=== PATIENT | male | born 1975 | race Asian ===

== ENCOUNTER 2016-08-05 16:35 | Outpatient (CLI) | payer BC, OTHER | END 2016-08-05 23:59 | disposition home or self-care (01) | DX: R31.29 Other microscopic hematuria (principal) ==

== ENCOUNTER 2016-08-14 18:53 | Outpatient (CLI) | payer OTHER | END 2016-08-14 18:54 | disposition home or self-care (01) | DX: R31.9 Hematuria, unspecified (principal) ==

== ENCOUNTER 2016-08-17 12:45 | Outpatient (CLI) | payer OTHER | END 2016-08-17 12:46 | disposition home or self-care (01) | DX: I31.9 Disease of pericardium, unspecified (principal) ==

== ENCOUNTER 2017-08-04 10:46 | Outpatient (CLI) | payer BC | END 2017-08-04 10:47 | disposition home or self-care (01) | LOC: SC 10:46 | PROVIDERS: ATTEND Internal Medicine Pulmonary Disease | DX: G47.30 Sleep apnea, unspecified (principal); G47.10 Hypersomnia, unspecified; G47.8 Other sleep disorders; R06.83 Snoring | CPT/HCPCS: 99203; 99212 ==

== ENCOUNTER 2017-09-29 14:13 | Outpatient (CLI) | payer BC | END 2017-09-29 14:14 | disposition home or self-care (01) | LOC: SC 14:13 | PROVIDERS: ATTEND Nurse Practitioner Family | DX: G47.33 Obstructive sleep apnea (adult) (pediatric) (principal) | CPT/HCPCS: 99212; 99214 ==

== ENCOUNTER 2017-12-01 15:45 | Outpatient (CLI) | payer BC | END 2017-12-01 15:46 | disposition home or self-care (01) | LOC: SC 15:45 | PROVIDERS: ATTEND Nurse Practitioner Family | DX: G47.33 Obstructive sleep apnea (adult) (pediatric) (principal) | CPT/HCPCS: 99212; 99214 ==

== ENCOUNTER 2018-01-05 13:27 | Outpatient (CLI) | payer BC | END 2018-01-05 13:28 | disposition home or self-care (01) | LOC: SC 13:27 | PROVIDERS: ATTEND Nurse Practitioner Family | DX: G47.33 Obstructive sleep apnea (adult) (pediatric) (principal) | CPT/HCPCS: 99212; 99214 ==

== ENCOUNTER 2018-02-18 13:31 | Outpatient (CLI) | payer BC | END 2018-02-18 13:32 | disposition home or self-care (01) | LOC: SC 13:31 | PROVIDERS: ATTEND Nurse Practitioner Family | DX: G47.33 Obstructive sleep apnea (adult) (pediatric) (principal) | CPT/HCPCS: 99212; 99214 ==

== ENCOUNTER 2018-03-25 13:37 | Outpatient (CLI) | payer BC | END 2018-03-25 13:38 | disposition home or self-care (01) | LOC: SC 13:37 | PROVIDERS: ATTEND Nurse Practitioner Family | DX: G47.33 Obstructive sleep apnea (adult) (pediatric) (principal) | CPT/HCPCS: 99212; 99214 ==

== ENCOUNTER 2018-05-11 15:39 | Outpatient (CLI) | payer BC | END 2018-05-11 15:40 | disposition home or self-care (01) | LOC: SC 15:39 | PROVIDERS: ATTEND Nurse Practitioner Family | DX: G47.33 Obstructive sleep apnea (adult) (pediatric) (principal) | CPT/HCPCS: 99212; 99214 ==

== ENCOUNTER 2018-06-15 15:09 | Outpatient (CLI) | payer BC | END 2018-06-15 15:10 | disposition home or self-care (01) | LOC: SC 15:09 | PROVIDERS: ATTEND Nurse Practitioner Family | DX: G47.33 Obstructive sleep apnea (adult) (pediatric) (principal) | CPT/HCPCS: 99212; 99213 ==

== ENCOUNTER 2020-04-30 16:51 | Outpatient (CLI) | payer BC, OTHER ==
[2020-04-30 18:39] LABS: BASOPHILS # (AUTO) 0.2 10^3/uL (0.0-0.1); BASOPHILS % (AUTO) 1.9 %; EOSINOPHILS # (AUTO) 0.4 10^3/uL (0.0-0.7); EOSINOPHILS % (AUTO) 4.6 %; LYMPHOCYTES # (AUTO) 2.3 10^3/uL (1.5-3.5); LYMPHOCYTES % (AUTO) 28.1 %; MEAN CORPUSCULAR HEMOGLOBIN 30.8 pg (27.0-31.0); MEAN CORPUSCULAR HGB CONC 36.2 g/dL (32.0-36.0); MEAN PLATELET VOLUME 11.7 fL (7.4-11.4); MONOCYTES # (AUTO) 0.6 10^3/uL (0.0-1.0); MONOCYTES % (AUTO) 7.2 %; NEUTROPHILS # (AUTO) 4.7 10^3/uL (1.5-6.6); NEUTROPHILS % (AUTO) 57.7 %; PLT - PLATELET COUNT 185 10^3/uL (130-450); RED BLOOD COUNT 5.52 10^6/uL (4.70-6.10); RED CELL DISTRIBUTION WIDTH 11.7 % (12.0-15.0); WHITE BLOOD COUNT 8.1 x10^3/uL (4.8-10.8)
[2020-04-30 18:52] LABS: BILIRUBIN,URINE NEGATIVE (NEGATIVE); GLUCOSE, URINE (UA) >=1000 mg/dL (NEGATIVE); KETONES,URINE (UA) NEGATIVE (NEGATIVE); LEUKOCYTE ESTERASE, URINE NEGATIVE (NEGATIVE); NITRITE,URINE NEGATIVE (NEGATIVE); OCCULT BLOOD,URINE MODERATE (NEGATIVE); PH,URINE 5.5 PH (5.0-7.5); PROTEIN,URINE 100 mg/dL (NEGATIVE); UROBILINOGEN,URINE 0.2 (NORMAL) E.U./dL (NORMAL)
[2020-04-30 19:12] LABS: ALBUMIN 4.5 g/dL (3.2-5.5); ALBUMIN/GLOBULIN RATIO 1.6 (1.0-2.2); ALKALINE PHOSPHATASE 105 IU/L (42-121); ALT ALANINE AMINOTRANSFERASE 17 IU/L (10-60); AST ASPARTATE AMINOTRANSFERASE 24 IU/L (10-42); BUN - BLOOD UREA NITROGEN 14 mg/dL (6-20); CALCIUM 9.5 mg/dL (8.5-10.3); CARBON DIOXIDE - CO2 23 mmol/L (21-32); CHLORIDE 98 mmol/L (101-111); CHOLESTEROL 401 mg/dL; GLUCOSE 288 mg/dL (70-100); HDL CHOLESTEROL 25 mg/dL; TOTAL PROTEIN 7.4 g/dL (6.7-8.2)
[2020-04-30 19:14] LABS: FOLATE 6.61 ng/mL (5.90 - >24.8)
[2020-04-30 19:21] LABS: BACTERIA,URINE None Seen /HPF (None Seen); CLARITY,URINE CLEAR (CLEAR); RBC,URINE 0-5 /HPF (0-5); SQUAMOUS EPITHELIAL CELL,UR NONE SEEN (<= Few)
[2020-04-30 20:12] LABS: HEMOGLOBIN A1c% 10.2 % (4.27-6.07)
== END 2020-04-30 23:59 | disposition home or self-care (01) ==
LOC: LAB.WCP 16:51
PROVIDERS: ATTEND Family Medicine
DX: R63.1 Polydipsia (principal); E78.1 Pure hyperglyceridemia; R35.8 Other polyuria; K14.9 Disease of tongue, unspecified
CPT/HCPCS: 36415; 80053; 80061; 81001; 82607; 82746; 83036; 83721; 85025; 87086

== ENCOUNTER 2020-06-05 12:52 | Outpatient (CLI) | payer OTHER ==
[2020-06-05 13:14] LABS: BASOPHILS # (AUTO) 0.1 10^3/uL (0.0-0.1); BASOPHILS % (AUTO) 0.6 %; EOSINOPHILS # (AUTO) 0.2 10^3/uL (0.0-0.7); EOSINOPHILS % (AUTO) 1.5 %; HCT - HEMATOCRIT 44.7 % (42.0-52.0); HGB - HEMOGLOBIN 15.3 g/dL (14.0-18.0); LYMPHOCYTES # (AUTO) 1.6 10^3/uL (1.5-3.5); LYMPHOCYTES % (AUTO) 9.7 %; MEAN CORPUSCULAR HEMOGLOBIN 30.9 pg (27.0-31.0); MEAN CORPUSCULAR HGB CONC 34.2 g/dL (32.0-36.0); MEAN CORPUSCULAR VOLUME 90.3 fL (80.0-94.0); MEAN PLATELET VOLUME 9.9 fL (7.4-11.4); MONOCYTES # (AUTO) 1.5 10^3/uL (0.0-1.0); MONOCYTES % (AUTO) 9.2 %; NEUTROPHILS # (AUTO) 12.9 10^3/uL (1.5-6.6); NEUTROPHILS % (AUTO) 78.8 %; PLT - PLATELET COUNT 185 10^3/uL (130-450); RED BLOOD COUNT 4.95 10^6/uL (4.70-6.10); RED CELL DISTRIBUTION WIDTH 12.5 % (12.0-15.0); WHITE BLOOD COUNT 16.4 x10^3/uL (4.8-10.8)
[2020-06-05 13:18] LABS: SLIDE REVIEW? Indicated
[2020-06-05 13:28] LABS: PLATELET ESTIMATE, MANUAL NORMAL (130-450,000) (NORMAL); PLATELET MORPHOLOGY NORMAL APPEARANCE (NORMAL); RBC MORPHOLOGY (MULTIPLE) NORMAL APPEARANCE (NORMAL); WBC MORPHOLOGY (MULTIPLE) NORMAL APPEARANCE (NORMAL)
[2020-06-05 13:30] LABS: ALBUMIN 4.5 g/dL (3.2-5.5); ALBUMIN/GLOBULIN RATIO 1.5 (1.0-2.2); BILIRUBIN,TOTAL 1.5 mg/dL (0.2-1.0); CALCIUM 9.3 mg/dL (8.5-10.3); POTASSIUM 3.6 mmol/L (3.5-5.0); TOTAL PROTEIN 7.6 g/dL (6.7-8.2)
[2020-06-05] MEDS ORDERED: IOPAMIDOL-300 50 ML VIAL PO ONE (14:52)
[2020-06-05] MEDS ORDERED: IOVERSOL 320 100 ML VIAL IVP ONE (14:52)
--- NOTE | 2020-06-05 15:41 | CT Report ---
PROCEDURE: Abdomen/Pelvis W INDICATIONS: LT LOWER QUAD ABD PAIN CONTRAST: IV CONTRAST: Optiray 320 ml: 100 PO CONTRAST: Isovue 300 ml50 TECHNIQUE: After the administration of oral and intravenous contrast, 5 mm thick sections acquired from the diap hragms to the symphysis. 5 mm thick coronal and sagittal reformats were acquired. For radiation dos e reduction, the following was used: automated exposure control, adjustment of mA and/or kV accordin g to patient size. COMPARISON: None. FINDINGS: Image quality: Excellent. ABDOMEN: Lung bases: Lung bases are clear. Heart size is normal. Solid organs: Liver and spleen are normal in size and enhancement. Gallbladder appears normal. Ramo iary system is non dilated. Pancreas enhances normally. No adrenal nodules. Kidneys demonstrate no rmal size and enhancement, without hydronephrosis. Peritoneum and bowel: There are multiple diverticula in the sigmoid colon with bowel wall thickening and inflammatory fat stranding surrounding a single diverticulum that is compatible with diverticulit is. No focal fluid collection or pneumoperitoneum is seen. The appendix appears normal. No signs of b owel obstruction. Bowel loops demonstrate normal wall thickness and caliber. No free fluid or air. Nodes and vessels: No retroperitoneal or mesenteric adenopathy by size criteria. Aorta and inferior vena cava are normal in size. Miscellaneous: No ventral hernias. PELVIS: Genitourinary: Bladder wall thickness is normal. Miscellaneous: No inguinal hernias or adenopathy. Bones: No suspicious bony lesions. No vertebral body compression fractures. IMPRESSION: Acute uncomplicated sigmoid diverticulitis. Reviewed by: Chong Henry MD on 06/05/2020 3:40 PM PST Approved by: Chong Henry MD on 06/05/2020 3:40 PM PST Station ID: [id number]
== END 2020-06-05 12:53 | disposition home or self-care (01) ==
LOC: LAB 12:52
PROVIDERS: ATTEND Nurse Practitioner Family
DX: K57.32 Diverticulitis of large intestine without perforation or abscess without bleeding (principal); R10.32 Left lower quadrant pain
CPT/HCPCS: 36415; 74177; 80053; 85025; Q9967

== ENCOUNTER 2020-06-12 08:00 | Outpatient (CLI) | payer OTHER ==
[2020-06-12 18:16] LABS: BASOPHILS % (AUTO) 1.5 %; EOSINOPHILS % (AUTO) 4.9 %; HCT - HEMATOCRIT 41.9 % (42.0-52.0); HGB - HEMOGLOBIN 14.4 g/dL (14.0-18.0); LYMPHOCYTES % (AUTO) 35.3 %; MEAN CORPUSCULAR HGB CONC 34.4 g/dL (32.0-36.0); MEAN CORPUSCULAR VOLUME 90.3 fL (80.0-94.0); MEAN PLATELET VOLUME 10.2 fL (7.4-11.4); MONOCYTES % (AUTO) 7.5 %; NEUTROPHILS % (AUTO) 50.6 %; PLT - PLATELET COUNT 245 10^3/uL (130-450); RED BLOOD COUNT 4.64 10^6/uL (4.70-6.10); RED CELL DISTRIBUTION WIDTH 12.1 % (12.0-15.0); WHITE BLOOD COUNT 8.1 x10^3/uL (4.8-10.8)
[2020-06-12 18:39] LABS: ABNORMAL LYMPHS % (MANUAL) 0 %; BAND NEUTROPHILS % (MANUAL) 0 %
[2020-06-12 20:54] LABS: DIFFERENTIAL COMMENT MANUAL DIFFERENTIAL; EOSINOPHILS # (MANUAL) 0.6 10^3/uL (0-0.7); LYMPHOCYTES # (MANUAL) 3.1 10^3/uL (1.5-3.5); LYMPHOCYTES % (MANUAL) 38 %; METAMYELOCYTES % (MANUAL) 1 %; MONOCYTES # (MANUAL) 0.3 10^3/uL (0.0-1.0); MYELOCYTES % (MANUAL) 1 %; NEUTROPHILS # (MANUAL) 3.9 10^3/uL (1.5-6.6); NUCLEATED RBC (MANUAL) 1 %; PLATELET ESTIMATE, MANUAL NORMAL (130-450,000) (NORMAL); RBC MORPHOLOGY (MULTIPLE) NORMAL APPEARANCE (NORMAL)
== END 2020-06-12 23:59 | disposition home or self-care (01) ==
LOC: LAB.WCP 08:00
PROVIDERS: ATTEND Family Medicine
DX: R19.5 Other fecal abnormalities (principal)
CPT/HCPCS: 36415; 85025

== ENCOUNTER 2020-08-10 08:37 | Day surgery (SDC) | payer OTHER ==
[2020-08-10] MEDS ORDERED: LACTATED RINGERS 1,000 ML IV ONE (08:42)
[2020-08-10] MEDS ORDERED: MIDAZOLAM 2 MG/2 ML VIAL ONE ×3 (11:22→11:52)
[2020-08-10] MEDS ORDERED: fentaNYL 250 MCG/5 ML VIAL ONE (11:22)
--- NOTE | 2020-08-10 11:40 | HISTORY & PHYSICAL EXAMINATION ---
Chief Complaint - Chief Complaint Chief Complaint: abdominal pain several weeks ago History of Present Illness - History Obtained From Records Reviewed: yes History obtained from: pt Exam Limitations: none - History of Present Illness HPI Comment/Other: Abdominal pain several weeks ago. He had elevated WBC and ct scan showed left colitis. He is well now History - Past Medical History Cardiovascular: reports: None Respiratory: reports: None Endocrine/Autoimmune: reports: Type 2 diabetes GI: reports: Diverticulitis : reports: None HEENT: reports: None Psych: reports: None Musculoskeletal: reports: None Derm: reports: None MRSA Hx?: No - Past Surgical History Ortho: reports: Knee replacement, Shoulder arthroplasty Meds/Allgy - Home Medications Home Medications: Ambulatory Orders Medication Instructions Recorded Confirmed metFORMIN [Glucophage] 500 mg PO BIDWM 08/09/20 08/10/20 Fluoxetine HCl [Prozac] 20 mg PO DAILY 08/10/20 08/10/20 - Allergies Allergies/Adverse Reactions: Allergies Allergy/AdvReac Type Severity Reaction Status Date / Time No Known Drug Allergies Allergy Verified 02/09/14 15:17 Review of Systems - Other Findings Other Findings: 10 pt ros as above otherwise unremarkable Exam - Vital Signs Reviewed Vital Signs: Yes Vital Signs: Vital Signs x48h Temp Pulse Resp BP Pulse Ox 08/10/20 08:44 36 C L 80 12 129/89 H 100 - Physical Exam General Appearance: positive: No acute distress, Alert Eyes Bilateral: positive: Normal inspection, PERRL, EOMI ENT: positive: No signs of dehydration Neck: positive: No JVD Respiratory: positive: Breath sounds nml Cardiovascular: positive: Regular rate & rhythm Abdomen: positive: Non-tender, No distention Neurologic/Psychiatric: positive: Oriented x3 Conclusion/Plan - Problem List (1) Colitis Conclusion/Plan: Plan colonoscopy. parq held and consent obtained
[2020-08-10] MEDS ORDERED: ONDANSETRON 4 MG/2 ML VIAL ONE (11:50)
[2020-08-10 12:36] VITALS: BP 116/84
== END 2020-08-10 08:38 | disposition home or self-care (01) ==
LOC: SDS 08:37
PROVIDERS: ATTEND Surgery
PROC: 0DBE8ZX Excision of Large Intestine, Via Natural or Artificial Opening Endoscopic, Diagnostic (ICD-10-PCS; 2020-08-10)
PROC: 0DBP8ZX Excision of Rectum, Via Natural or Artificial Opening Endoscopic, Diagnostic (ICD-10-PCS; principal; 2020-08-10 10:00)
DX: Z09 Encounter for follow-up examination after completed treatment for conditions other than malignant neoplasm (principal); Z87.19 Personal history of other diseases of the digestive system; K63.5 Polyp of colon; E11.9 Type 2 diabetes mellitus without complications; Z79.84 Long term (current) use of oral hypoglycemic drugs; Z79.899 Other long term (current) drug therapy
CPT/HCPCS: 45380; J3010; J7120

== ENCOUNTER 2020-08-23 16:08 | Outpatient (CLI) | payer OTHER | END 2020-08-23 16:09 | disposition home or self-care (01) | LOC: LAB.N 16:08 | PROVIDERS: ATTEND Family Medicine | DX: E11.8 Type 2 diabetes mellitus with unspecified complications (principal) ==

== ENCOUNTER 2020-08-24 07:02 | Outpatient (CLI) | payer OTHER ==
[2020-08-24 11:44] LABS: CALCIUM 9.2 mg/dL (8.5-10.3); CREATININE 0.9 mg/dL (0.6-1.2)
[2020-08-24 11:50] LABS: CREATININE,URINE 159.4 mg/dL; MICROALBUM/CREATININE RATIO,UR 109.8 ug/mg (<30.0); MICROALBUMIN,URINE 17.5 mg/dL (0-300.0)
[2020-08-24 12:06] LABS: ESTIMATED AVERAGE GLUCOSE 140 mg/dL (70-100); HEMOGLOBIN A1c% 6.5 % (4.27-6.07)
== END 2020-08-24 07:03 | disposition home or self-care (01) ==
LOC: LAB.N 07:02
PROVIDERS: ATTEND Family Medicine
DX: E11.8 Type 2 diabetes mellitus with unspecified complications (principal)
CPT/HCPCS: 36415; 80048; 81599; 82043; 82570; 83036; 84681; 86341

== ENCOUNTER 2021-03-21 13:34 | Outpatient (CLI) | payer OTHER | END 2021-03-21 13:35 | disposition home or self-care (01) | LOC: DI.N 13:34 | PROVIDERS: ATTEND Family Medicine | DX: Z53.9 Procedure and treatment not carried out, unspecified reason (principal) ==

== ENCOUNTER 2021-04-18 08:00 | Outpatient (CLI) | payer OTHER ==
[2021-04-18 12:20] LABS: ALBUMIN 4.5 g/dL (3.2-5.5); ALBUMIN/GLOBULIN RATIO 1.6 (1.0-2.2); BILIRUBIN,TOTAL 0.7 mg/dL (0.2-1.0); CALCIUM 9.5 mg/dL (8.5-10.3); TOTAL PROTEIN 7.4 g/dL (6.7-8.2)
[2021-04-18 14:34] LABS: ESTIMATED AVERAGE GLUCOSE 160 mg/dL (70-100); HEMOGLOBIN A1c% 7.2 % (4.27-6.07)
== END 2021-04-18 23:59 | disposition home or self-care (01) ==
LOC: LAB.WCP 08:00
PROVIDERS: ATTEND Family Medicine
DX: E11.8 Type 2 diabetes mellitus with unspecified complications (principal)
CPT/HCPCS: 36415; 80053; 83036

== ENCOUNTER 2021-04-18 08:33 | Outpatient (CLI) | payer OTHER ==
--- NOTE | 2021-04-18 12:51 | XRAY Report ---
PROCEDURE: Ankle 3 View LT INDICATIONS: LEFT ANKLE PAIN TECHNIQUE: 3 views of the ankle were acquired. COMPARISON: None FINDINGS: Bones: No fractures or dislocations. Ankle mortise is normally aligned. No suspicious bony lesions . Soft tissues: No tibiotalar joint effusion. Achilles tendon appears normal. IMPRESSION: No visualized acute fracture or dislocation. However, occult injury cannot be excluded. Recommend short interval imaging follow-up in 7-10 days as clinically indicated for additional evalua tion. Reviewed by: Karina Zapata MD on 04/18/2021 12:50 PM [facility] Approved by: Karina Zapata MD on 04/18/2021 12:50 PM [facility] Station ID: [id number]
== END 2021-04-18 08:34 | disposition home or self-care (01) ==
LOC: DI.N 08:33
PROVIDERS: ATTEND Family Medicine
DX: M25.572 Pain in left ankle and joints of left foot (principal); E11.8 Type 2 diabetes mellitus with unspecified complications
CPT/HCPCS: 36415; 80053; 83036

== ENCOUNTER 2021-07-11 15:33 | Outpatient (CLI) | payer OTHER ==
--- NOTE | 2021-07-11 16:32 | SLEEP CARE CONSULTATION ---
Information from patient questionnaire entered by Rosemary Freitas MA. I have reviewed and concur with the information entered by Rosemary Freitas MA. This document represents the service I personally performed and the decisions made by , Eveline Chicas ARNP. History of Present Illness Service Date and Time: 07/11/2021 1533 Reason for Visit: New patient (LAST SEEN 06/2018, HAS NOT USED CPAP FOR MONTHS, ), Previously diagnosed sleep apnea Chief Complaint: reports: Unrefreshed sleep, Snoring, Observed pauses in breathing, Fatigue Date of Onset: 14 years Usual bedtime: 9:30-10:00 Time it takes to fall asleep: within 5 minutes Snores at night: Yes Observed to quit breathing while asleep: Yes Sleeps alone due to snoring: Yes Number of times waking at night: 2 Reasons for waking at night: reports: Snoring, Other (unknown reasons) Toss, Turn, or Twitch while sleeping: Yes Recalls having dreams: Yes Usually gets out of bed at: 0500 WEEK 0700 WEEKENDS Feels refreshed in the morning: No (not all the time) Morning headache: No Sleepy or fatigued during the day: Yes Ever fallen asleep while driving: No Takes day naps: Yes (2 times a week; lasts about 1.5 - 2 hours) Dreams during day naps: No Prior sleep studies: Yes Additional HPI information: SAMIA JASON was previously diagnosed to have severe, AHI 44.9, obstructive sleep apnea-hypopnea syndrome and comes in today to re-establish care for CPAP therapy. He has not been using his CPAP since 2019 due to mask issues. - Parasomnia Symptoms Ever been unable to move upon waking from sleep: No Walks in sleep: No Talks in sleep: Yes Ever acted out dreams in sleep: Yes Ever felt weak in the knees when startled or emotional: No Bothered by creepy, crawly, restless sensations in legs: No Problems with memory or concentration: No CPAP Compliance Data Compliance data discussion: Patient has a Dreamstation that may be on the recall. He has not been using his CPAP because of mask issues. He had been using nasal pillows mask that was uncomfortable and in the middle of the night he would find it under his chin. He has not consistently used it since 2019. Subjective Initial [place] Sleepiness Scale score: 6 (06/2021) Past Medical History Past Medical History: reports: Diabetes, Anxiety Social History The patient's occupation is a [employer]OL RO[employer]. Patient is and lives in [place]. Have you smoked in the past 12 months: Yes Cigarettes per day (20/pack): 20 Years of smokin Smoking Pack Years: 20.0 Alcohol use: Yes Alcohol amount and frequency: social, not often Caffeine use: Yes Caffeine amount and frequency: 3 X DAILY Family History Family history of sleep disordered breathing: Yes Family Hx Sleep Apnea: Father: Snoring, Sleep apnea - Untreated, Sibling: Snoring, Sleep apnea - Untreated Allergies and Home Medications Drug allergies reviewed: Yes (NKDA) Home medication list reviewed: Yes Allergy and home medication list: Allergies No Known Drug Allergies Allergy (Verified 02/09/14 15:17) Medications: Metformin 500 mg BID Fluoxetine 20 mg daily Review of Systems Cardiovascular: denies: high blood pressure Gastrointestinal: denies: heartburn Neurological: denies: headaches Psychiatric: reports: anxiety. denies: depression Ear/Nose/Throat: denies: tonsillectomy, wisdom teeth removed Endocrine: denies: thyroid disease Immunologic: denies: allergies to food or environment Physical Exam Vital signs obtained and entered by: Haris FREITAS CMA [facility] Blood Pressure: 128/78 (RESP 16, PULSE 92, LEFT, ) Heart Rate: 90 O2 Saturation: 96 (N95) Height: 6 ft Weight: 180 lb (CLOTHES) Body Mass Index: 24.4 BMI Classification: Healthy weight Neck circumference: 14.5 (INCHES) Heart: regular rate and rhythm Lungs: clear bilaterally Impression and Plan 1. Severe Obstructive Sleep Apnea-Hypopnea Syndrome, as previously diagnosed and as still suggested by a history of loud and irregular snoring, observed cessation of breath while asleep, gasping or choking in sleep, unrefreshed sleep , and excessive daytime sleepiness. I recommend proceeding to polysomnography to confirm the diagnosis and to assess severity. If the patient has significant sleep disordered breathing, a manual CPAP titration study will also be performed to find the optimal treatment pressure. I informed the patient of what the sleep studies involve and after some discussion, obtained agreement to proceed. The pa thophysiology of obstructive sleep apnea-hypopnea syndrome was discussed with the patient and health risks of cardiovascular and cerebrovascular disease if not treated. Risks of drowsy driving discussed in detail and patient advised to avoid long distance driving and to gum puller at the first sign of drowsiness. Patient agreed to plan. * Schedule polysomnography +- manual CPAP titration study and return in 1-2 weeks after the study to discuss results. * Avoid long distance driving or driving when feeling sleepy. * Avoid alcohol, sedative and muscle relaxant around bedtime. * Maintain a healthy weight. * Review instructions provided by trained office staff on how to prepare for the sleep study. * Return for follow-up after sleep study completed. Counseling Topics: Weight control Visit Type: In Office Time Spent with Patient (minutes): 30 Provider Statement: I spent 100% of the Face to Face Visit with the patient with greater than 50% spent counseling the patient and coordination of care.
[2021-07-11 16:33] VITALS: BP 128/78
== END 2021-07-11 15:34 | disposition home or self-care (01) ==
LOC: SC 15:33
PROVIDERS: ATTEND Nurse Practitioner Family
DX: G47.33 Obstructive sleep apnea (adult) (pediatric) (principal); E11.9 Type 2 diabetes mellitus without complications; F17.210 Nicotine dependence, cigarettes, uncomplicated; Z79.84 Long term (current) use of oral hypoglycemic drugs
CPT/HCPCS: 99203; 99212

== ENCOUNTER 2021-07-26 14:17 | Outpatient (CLI) | payer OTHER | END 2021-07-26 14:18 | disposition home or self-care (01) | LOC: SC 14:17 | PROVIDERS: ATTEND Nurse Practitioner Family | DX: G47.33 Obstructive sleep apnea (adult) (pediatric) (principal); R09.02 Hypoxemia; R00.0 Tachycardia, unspecified | CPT/HCPCS: 95806 ==

== ENCOUNTER 2021-08-15 15:25 | Outpatient (CLI) | payer OTHER ==
[2021-08-15 16:04] VITALS: BP 130/79
--- NOTE | 2021-08-15 16:04 | SLEEP CARE CONSULTATION ---
Information from patient questionnaire entered by Rosemary Freitas MA. I have reviewed and concur with the information entered by Rosemary Freitas MA. This document represents the service I personally performed and the decisions made by , Eveline Chicas ARNP. History of Present Illness Service Date and Time: 08/15/2021 1525 Initial [place] Sleepiness Scale score: 6 (06/2021) Current [place] Sleepiness Scale score: 9 (08/2021) Additional HPI information: SAMIA JASON returns for follow up and results of the recently performed home sleep study. I explained the pathophysiology behind obstructive sleep apnea. We then spent quite a bit of time discussing different treatment options. For mild obstructive sleep apnea, surgery and oral appliance are alternatives to nasal CPAP therapy but in moderate or severe cases, nasal CPAP is the most effective and reliable treatment. I reviewed the impact of weight changes on sleep apnea and strongly recommended losing weight. After some discussion, the patient opted to go with the nasal CPAP therapy. Nasal autoCPAP set at 4-15 cmH20 will be ordered with rationale explained. A manual titration study will be ordered if unable to find optimal pressure with office adjustments. I explained how CPAP machine works and what to expect when using the machine. Using CPAP every night in order to get used to it was emphasized. Patient advised to put CPAP mask on before getting into bed so as not to fall asleep without CPAP. To assist acclimation to CPAP use, it could also be used for a short time during day while reading or watching TV. The patient was instructed to call the CPAP supplier to discuss any mechanical problem that may occur. If the mask given is uncomfortable or is difficult to keep on through the night even with adjustment, contact the CPAP supplier as many will replace with another mask style if notified before 30 days. If snoring or perceives is not getting enough air or too much air from the machine, notify this office. Patient counseled not drink alcohol less than 4 hours before bedtime as it can increase snoring and apnea. Patient was cautioned about risks of drowsy driving until sleepiness symptoms resolve. Sleep Study - Results Type of Sleep Study: Home sleep study (F/U HOME STUDY, 07/26/21 [facility],) Prior sleep studies: Yes Polysomnography/Home Sleep Study results: Physician Impression: The quality of the study is good. The length of the study is adequate (> 240 minutes). Please also see the tabulated and graphic data. 1. Obstructive Sleep Apnea-Hypopnea (ICD-10 G47.33), severe, with an AHI of 59.6/hr and so SaO2 of 81%. During the study, the patient had 455 apneas (455 obstructive, 0 central, 0 mixed) and 33 hypopneas. The longest episode lasted 103.5 seconds. The respiratory events occurred only during supine sleep (supine AHI was 67.5 and non-supine, 0.00). 2. Hypoxemia (ICD-10 R09.02), mild, with the lowest oxygen saturation of 81 % and 29.8 minutes with SaO2 under 90%. Baseline oxygen saturation was normal (Average oxygen saturation was 94%). 3. Tachycardia, with maximum recorded heart rate of 129 beats per minute. Allergies and Home Medications Home medication list reviewed: Yes (no changes) Allergy and home medication list: Allergies No Known Drug Allergies Allergy (Verified 02/09/14 15:17) Review of Systems Review of systems same as previous: Yes (no changes) Physical Exam Vital signs obtained and entered by: Haris FREITAS CMA AAOH, Blood Pressure: 130/79 (RIGHT, PULSE 79, RESP 16) Heart Rate: 75 O2 Saturation: 98 (N94) Height: 6 ft Weight: 184 lb (WITH CLOTHES BOOTS) Body Mass Index: 24.9 BMI Classification: Healthy weight Impression and Plan 1. Obstructive Sleep Apnea-Hypopnea Syndrome, severe, with lowest oxygen saturation of 81%. Obviously this is the cause of the patients symptoms of unrefreshed sleep, and excessive daytime sleepiness. Positive pressure therapy could benefit diabetes and anxiety. As mentioned above, the patient will be started on nasal autoCPAP therapy with pressure set at 4-15 cmH2O. A manual titration study will be completed if unable to find optimal treatment pressure with office adjustments. Compliance guidelines also reviewed. A copy of compliance guidelines will be given for reference at check out. 2. Hypoxemia, mild, with the lowest oxygen saturation of 81 % and 29.8 minutes with SaO2 under 90%. His baseline oxygen saturation was normal with an average oxygen saturation of 94%. 3. Tachycardia, with maximum recorded heart rate of 129 beats per minute during the night of the study. Elevated heart rate could be secondary to obstructive sleep apnea but may also be due to cardiovascular disease. He was advised to follow up with his primary doctor for further evaluation and workup as needed. * Nasal auto CPAP therapy, pressure at 4-15 cm H2O. * Attempt to lose weight. * Avoid alcohol consumption near bedtime. * Avoid supine sleep until using CPAP. * The patient is again cautioned about driving until sleepiness completely resolves. * Return one month after CPAP obtained. I will assess response to therapy and compliance at that time. Counseling Topics: Weight control Visit Type: In Office Time Spent with Patient (minutes): 20 Provider Statement: I spent 100% of the Face to Face Visit with the patient with greater than 50% spent counseling the patient and coordination of care.
== END 2021-08-15 15:26 | disposition home or self-care (01) ==
LOC: SC 15:25
PROVIDERS: ATTEND Nurse Practitioner Family
DX: G47.33 Obstructive sleep apnea (adult) (pediatric) (principal)
CPT/HCPCS: 99212; 99213

== ENCOUNTER 2021-10-17 15:21 | Outpatient (CLI) | payer OTHER ==
--- NOTE | 2021-10-17 16:04 | SLEEP CARE CONSULTATION ---
Information from patient questionnaire entered by Rosemary Freitas MA. I have reviewed and concur with the information entered by Rosemary Freitas MA. This document represents the service I personally performed and the decisions made by , Eveline Chicas ARNP. History of Present Illness Service Date and Time: 10/17/2021 1521 Previous diagnosis: Severe, Obstructive Sleep Apnea-Hypopnea Syndrome AHI: 59.6 Reason for follow up: first compliance (CHANDANA DE LEON 09/11/2021, ) Equipment type: CPAP Equipment obtained from: [facility] (got initial supplies) Mask style: Nasal (over the nose) Mask brand: Resmed Backup mask available: No (will keep old mask when replaced) Last cushion change: 1 month Prior sleep studies: Yes Type of Sleep Study: Home sleep study (F/U HOME STUDY, 07/26/21 [facility],) HPI additional information: SAMIA JASON was diagnosed to have severe, AHI 59.6, obstructive sleep apnea- hypopnea syndrome and returned today for CPAP therapy first compliance follow- up. Sleep Study - Results Type of Sleep Study: Home sleep study (F/U HOME STUDY, 07/26/21 [facility],) Prior sleep studies: Yes CPAP Compliance Data - Data Reviewed with Patient Average duration of nightly device use: 6 HOURS 44 MINUTES Compliance rate %: 100 (09/16/2021-10/15/2021; 30/30 days used) Current pressure setting (cmH2O): 5-20 Average residual AHI: 1.9 Central apnea: .4 Obstructive apnea: 1.2 Hypopnea: .1 Average large leak: .0 Subjective Patient concerns: reports: other (occasional slight headache). denies: aerophagia, mask discomfort, air blowing in eyes, mask leak noise, condensation in mask/hose, nasal congestion, dry mouth, nose, throat, epistaxis Observed to snore while using device: No Current pressure setting perceived as: comfortable On therapy, patient: reports: sleeping better, awakening more refreshed, being more awake and alert during the day, more rested overall. denies: drowsiness while driving Initial [place] Sleepiness Scale score: 6 (06/2021) Current [place] Sleepiness Scale score: 4 () Allergies and Home Medications Known drug allergies: No Home medication list reviewed: Yes (no changes) Allergy and home medication list: Allergies No Known Drug Allergies Allergy (Verified 02/09/14 15:17) Review of Systems Review of systems same as previous: Yes (no changes) Physical Exam Vital signs obtained and entered by: AMANDA GARCIA Blood Pressure: 120/82 (RESP 18, PULSE 80, RIGHT) Cuff size: wrist Heart Rate: 82 O2 Saturation: 98 (PAPER MASK) Height: 6 ft Weight: 185 lb (CLOTHES) Weight change since last visit: MAINTAINING WEIGHT Body Mass Index: 25.0 BMI Classification: Overweight Impression and Plan 1. Obstructive Sleep Apnea-Hypopnea Syndrome, severe, with excellent treatment compliance and good apnea control. On CPAP therapy, the patient has better sleep quality and is more rested overall. Patient is very happy with current experience using a CPAP. He finds that the nasal mask comfortable and is keeping it on throughout the night. Patient also went camping and took his CPAP run by a generator. He has ordered a battery backup for his CPAP for further camping trips. He occasionally is getting a headache after using his CPAP. He states these are not severe or often. The patients pressure will be changed to autoCPAP 8-11 cmH20 to reflect pressures being used and to reduce headaches. Patient advised to contact me if pressure change is uncomfortable so that it can be adjusted. Goals for apnea control discussed. Patient's apnea severity and rationale for treatment to reduce apnea, improve sleep quality and reduce cardiovascular and cerebrovascular events was reviewed. I also reviewed the benefit of consistent device use of CPAP for diabetes and anxiety. Patient is overweight and was encouraged to try to lose weight for his overall health and to reduce apneas. * Change auto CPAP pressure to 8-11 cmH2O * Notify me if snoring with mask or feeling that the pressure is too much or too little * Attempt to lose weight * Call this office if any problems using CPAP * Return for follow up in 1-2 months, or sooner if concerns arise Counseling Topics: Spare mask, Weight loss health impact Visit Type: In Office Time Spent with Patient (minutes): 22 Provider Statement: I spent 100% of the Face to Face Visit with the patient with greater than 50% spent counseling the patient and coordination of care.
[2021-10-17 16:09] VITALS: BP 120/82
== END 2021-10-17 15:22 | disposition home or self-care (01) ==
LOC: SC 15:21
PROVIDERS: ATTEND Nurse Practitioner Family
DX: G47.33 Obstructive sleep apnea (adult) (pediatric) (principal); E66.3 Overweight; Z68.25 Body mass index [BMI] 25.0-25.9, adult
CPT/HCPCS: 99212; 99213

== ENCOUNTER 2021-12-24 15:18 | Outpatient (CLI) | payer OTHER ==
--- NOTE | 2021-12-24 15:50 | SLEEP CARE CONSULTATION ---
Information from patient questionnaire entered by Camilla Ivory MA. I have reviewed and concur with the information entered by Camilla Ivory MA. This document represents the service I personally performed and the decisions made by , Eveline Chicas ARNP. History of Present Illness Service Date and Time: 12/24/2021 1518 Previous diagnosis: Severe, Obstructive Sleep Apnea-Hypopnea Syndrome AHI: 59.6 Reason for follow up: other (2 MO FOLLOW UP) Equipment type: CPAP Equipment obtained from: [facility] (supplies ordered) Mask style: Nasal (over the nose) Backup mask available: No (will keep old mask when replaced) Prior sleep studies: Yes Type of Sleep Study: Home sleep study (F/U HOME STUDY, 07/26/21 [facility],) HPI additional information: SAMIA JASON was diagnosed to have severe, AHI 59.6, obstructive sleep apnea- hypopnea syndrome and returned today for CPAP therapy two month follow-up. Sleep Study - Results Type of Sleep Study: Home sleep study (F/U HOME STUDY, 07/26/21 [facility],) Prior sleep studies: Yes CPAP Compliance Data - Data Reviewed with Patient Average duration of nightly device use: 6HRS 56MIN Compliance rate %: 95 (10/24/21-12/22/21) Current pressure setting (cmH2O): 8-11 Average residual AHI: 2.7 Average large leak: 0.0 Subjective Patient concerns: denies: aerophagia, mask discomfort, air blowing in eyes, mask leak noise, condensation in mask/hose, nasal congestion, dry mouth, nose, throat, epistaxis, other Observed to snore while using device: No Current pressure setting perceived as: comfortable On therapy, patient: reports: sleeping better, awakening more refreshed, being more awake and alert during the day, more rested overall. denies: drowsiness while driving Initial [place] Sleepiness Scale score: 6 (06/2021) Current [place] Sleepiness Scale score: 4 Allergies and Home Medications Known drug allergies: No Drug allergies reviewed: Yes Home medication list reviewed: Yes (Lispro insulin (fast acting) 5 units; Insulin (12 hour release)) Allergy and home medication list: Allergies No Known Drug Allergies Allergy (Verified 02/09/14 15:17) Review of Systems Review of systems same as previous: Yes (no changes) Physical Exam Vital signs obtained and entered by: Altaf IVORY MA Blood Pressure: 117/82 (LEFT) Cuff size: wrist Heart Rate: 90 O2 Saturation: 97 Height: 6 ft Weight: 196 lb Body Mass Index: 26.6 BMI Classification: Overweight Impression and Plan 1. Obstructive Sleep Apnea-Hypopnea Syndrome, severe, with good treatment compliance and good apnea control. On CPAP therapy, the patient has better sleep quality and is more rested overall. Patient states he is very interested his CPAP therapy because it is more comfortable than it was last time. He likes his over the nose nasal cushion mask because it is comfortable and he does not get the leaks that he did with the other mask. He is not keeping his up from snoring and even his has noticed that he is less tired during the daytime. He states he wants to use the CPAP and even took it when he stated his dad's house for a week. Patient's apnea severity and rationale for treatment to reduce apnea, improve sleep quality and reduce cardiovascular and cerebrovascular events was reviewed. I also reviewed the benefit of consistent device use of CPAP for diabetes and anxiety. * Continue auto CPAP pressure at 8-11 cmH2O * Notify me if snoring with mask or feeling that the pressure is too much or too little * Attempt to lose weight * Call this office if any problems using CPAP * Return for follow up in 3 months, or sooner if concerns arise Counseling Topics: Spare mask, Weight loss health impact Visit Type: In Office Time Spent with Patient (minutes): 20 Provider Statement: I spent 100% of the Face to Face Visit with the patient with greater than 50% spent counseling the patient and coordination of care.
[2021-12-24 15:57] VITALS: BP 117/82
== END 2021-12-24 15:19 | disposition home or self-care (01) ==
LOC: SC 15:18
PROVIDERS: ATTEND Nurse Practitioner Family
DX: G47.33 Obstructive sleep apnea (adult) (pediatric) (principal); E66.3 Overweight; Z68.26 Body mass index [BMI] 26.0-26.9, adult
CPT/HCPCS: 99212; 99213

== ENCOUNTER 2022-03-17 15:21 | Outpatient (CLI) | payer OTHER ==
[2022-03-17 17:44] LABS: BASOPHILS # (AUTO) 0.2 10^3/uL (0.0-0.1); BASOPHILS % (AUTO) 1.4 %; EOSINOPHILS # (AUTO) 0.4 10^3/uL (0.0-0.7); HCT - HEMATOCRIT 47.1 % (42.0-52.0); HGB - HEMOGLOBIN 16.8 g/dL (14.0-18.0); LYMPHOCYTES # (AUTO) 2.7 10^3/uL (1.5-3.5); LYMPHOCYTES % (AUTO) 24.7 %; MEAN CORPUSCULAR HEMOGLOBIN 31.1 pg (27.0-31.0); MEAN CORPUSCULAR HGB CONC 35.7 g/dL (32.0-36.0); MEAN CORPUSCULAR VOLUME 87.1 fL (80.0-94.0); MONOCYTES # (AUTO) 0.9 10^3/uL (0.0-1.0); MONOCYTES % (AUTO) 7.7 %; NEUTROPHILS # (AUTO) 6.9 10^3/uL (1.5-6.6); NEUTROPHILS % (AUTO) 61.8 %; PLT - PLATELET COUNT 217 10^3/uL (130-450); RED BLOOD COUNT 5.41 10^6/uL (4.70-6.10); RED CELL DISTRIBUTION WIDTH 12.1 % (12.0-15.0); WHITE BLOOD COUNT 11.1 x10^3/uL (4.8-10.8)
[2022-03-17 18:32] LABS: THYROID STIMULATING HORMONE 2.35 uIU/mL (0.34-5.60)
[2022-03-17 19:14] LABS: ALBUMIN 4.5 g/dL (3.2-5.5); ALBUMIN/GLOBULIN RATIO 1.5 (1.0-2.2); ALKALINE PHOSPHATASE 82 IU/L (42-121); ALT ALANINE AMINOTRANSFERASE 20 IU/L (10-60); AST ASPARTATE AMINOTRANSFERASE 24 IU/L (10-42); BILIRUBIN,TOTAL 0.3 mg/dL (0.2-1.0); BUN - BLOOD UREA NITROGEN 21 mg/dL (6-20); CALCIUM 9.4 mg/dL (8.5-10.3); CARBON DIOXIDE - CO2 25 mmol/L (21-32); CHLORIDE 98 mmol/L (101-111); CHOL/HDL RATIO 6.4 (<5.0); CHOLESTEROL 161 mg/dL; CREATININE 1.2 mg/dL (0.6-1.2); GFR - MDRD 66 (>89); GLUCOSE 276 mg/dL (70-100); HDL CHOLESTEROL 25 mg/dL; POTASSIUM 4.2 mmol/L (3.5-5.0); SODIUM 135 mmol/L (135-145); TOTAL PROTEIN 7.6 g/dL (6.7-8.2); TRIGLYCERIDES 1016 mg/dL
[2022-03-17 19:23] LABS: ESTIMATED AVERAGE GLUCOSE 200 mg/dL (70-100); HEMOGLOBIN A1c% 8.6 % (4.27-6.07)
[2022-03-17 19:38] LABS: LDL CHOLESTEROL,DIRECT 52 mg/dL; LDLD/HDL RATIO 2.1 (<3.6)
== END 2022-03-17 15:22 | disposition home or self-care (01) ==
LOC: LAB.N 15:21
PROVIDERS: ATTEND Physician Assistant
DX: E11.65 Type 2 diabetes mellitus with hyperglycemia (principal); E78.2 Mixed hyperlipidemia
CPT/HCPCS: 36415; 80053; 80061; 83036; 83721; 84443; 85025

== ENCOUNTER 2022-03-25 15:17 | Outpatient (CLI) | payer OTHER ==
[2022-03-25 16:00] VITALS: BP 102/70
--- NOTE | 2022-03-25 16:00 | SLEEP CARE CONSULTATION ---
Information from patient questionnaire entered by Angela Campos. I have reviewed and concur with the information entered by Angela Campos. This document represents the service I personally performed and the decisions made by me, Eveline Chicas ARNP. History of Present Illness Service Date and Time: 03/25/2022 151 Previous diagnosis: Severe, Obstructive Sleep Apnea-Hypopnea Syndrome AHI: 59.6 Reason for follow up: three month (F/U) Equipment type: CPAP (RESMED Airsense 11) Equipment obtained from: [employer] (getting supplies) Mask style: Nasal (over the nose) Backup mask available: Yes (old mask) Last cushion change: 3+ weeks Prior sleep studies: Yes Type of Sleep Study: Home sleep study (F/U HOME STUDY, 07/26/21 [facility],) HPI additional information: SAMIA JASON was diagnosed to have severe, AHI 59.6, obstructive sleep apnea- hypopnea syndrome and returned today for CPAP therapy three month follow-up. Sleep Study - Results Type of Sleep Study: Home sleep study (F/U HOME STUDY, 07/26/21 [facility],) Prior sleep studies: Yes CPAP Compliance Data - Data Reviewed with Patient Average duration of nightly device use: 7 HRS 15 MIN Compliance rate %: 100 (12/24/21-03/23/22; 90/90 days used) Current pressure setting (cmH2O): 8-11 Average residual AHI: 2.4 Central apnea: 0.7 Obstructive apnea: 1.4 Subjective Patient concerns: denies: aerophagia, mask discomfort, air blowing in eyes, mask leak noise, condensation in mask/hose, nasal congestion, dry mouth, nose, throat, epistaxis Observed to snore while using device: No Current pressure setting perceived as: comfortable On therapy, patient: reports: sleeping better, awakening more refreshed, being more awake and alert during the day, more rested overall. denies: drowsiness while driving Initial [place] Sleepiness Scale score: 6 (06/2021) Current [place] Sleepiness Scale score: 1 (03/25/2022) Allergies and Home Medications Drug allergies reviewed: Yes (NKDA) Home medication list reviewed: Yes (no changes) Review of Systems Review of systems same as previous: Yes (no changes) Physical Exam Vital signs obtained and entered by: ANGELA C, MA Blood Pressure: 102/70 (LEFT ARM) Cuff size: regular Heart Rate: 83 O2 Saturation: 95 Height: 6 ft Weight: 201 lb 9.6 oz Body Mass Index: 27.3 BMI Classification: Overweight Impression and Plan 1. Obstructive Sleep Apnea-Hypopnea Syndrome, severe, with good treatment compliance and good apnea control. On CPAP therapy, the patient has better sleep quality and is more rested overall. Patient has been doing very well and is satisfied with current CPAP therapy. He has no issues with CPAP use. Patient's apnea severity and rationale for treatment to reduce apnea, improve sleep quality and reduce cardiovascular and cerebrovascular events was reviewed. I also reviewed the benefit of consistent device use of CPAP for diabetes and anxiety. 2. Overweight, unspecified. Currently patients BMI is 27.3. Obesity increases the risk of apnea, CPAP pressure requirements and overall health risks especiall y cardiovascular and diabetes. Thus patient is advised to lose weight. * Continue auto CPAP pressure at 8-11 cmH2O * Notify me if snoring with mask or feeling that the pressure is too much or too little * Attempt to lose weight * Call this office if any problems using CPAP * Return for follow up in 6 months, or sooner if concerns arise Counseling Topics: Spare mask, Weight loss health impact Visit Type: In Office Time Spent with Patient (minutes): 20 Provider Statement: I spent 100% of the Face to Face Visit with the patient with greater than 50% spent counseling the patient and coordination of care.
== END 2022-03-25 15:18 | disposition home or self-care (01) ==
LOC: SC 15:17
PROVIDERS: ATTEND Nurse Practitioner Family
DX: G47.33 Obstructive sleep apnea (adult) (pediatric) (principal); E66.3 Overweight; Z68.27 Body mass index [BMI] 27.0-27.9, adult
CPT/HCPCS: 99212; 99213

== ENCOUNTER 2022-06-16 15:16 | Outpatient (CLI) | payer OTHER ==
[2022-06-16 17:50] LABS: BUN - BLOOD UREA NITROGEN 21 mg/dL (6-20); CALCIUM 10.1 mg/dL (8.5-10.3); CARBON DIOXIDE - CO2 26 mmol/L (21-32); CHLORIDE 107 mmol/L (101-111); CHOLESTEROL 137 mg/dL; CREATININE 1.1 mg/dL (0.6-1.2); CREATININE,URINE 127.3 mg/dL; GFR - MDRD 72 (>89); GLUCOSE 111 mg/dL (70-100); HDL CHOLESTEROL 23 mg/dL; MICROALBUM/CREATININE RATIO,UR 204.2 ug/mg (<30.0); SODIUM 139 mmol/L (135-145); TRIGLYCERIDES 508 mg/dL
[2022-06-16 18:35] LABS: LDL CHOLESTEROL,DIRECT 56 mg/dL; LDLD/HDL RATIO 2.4 (<3.6)
[2022-06-16 21:50] LABS: ESTIMATED AVERAGE GLUCOSE 197 mg/dL (70-100); HEMOGLOBIN A1c% 8.5 % (4.27-6.07)
== END 2022-06-16 15:17 | disposition home or self-care (01) ==
LOC: LAB.N 15:16
PROVIDERS: ATTEND Physician Assistant
DX: E11.42 Type 2 diabetes mellitus with diabetic polyneuropathy (principal); E78.1 Pure hyperglyceridemia; E78.2 Mixed hyperlipidemia
CPT/HCPCS: 36415; 80048; 80061; 82043; 82570; 83036; 83721

== ENCOUNTER 2022-10-09 15:12 | Outpatient (CLI) | payer OTHER ==
[2022-10-09 18:13] LABS: ALBUMIN 4.4 g/dL (3.2-5.5); ALBUMIN/GLOBULIN RATIO 1.4 (1.0-2.2); ALKALINE PHOSPHATASE 55 IU/L (42-121); ALT ALANINE AMINOTRANSFERASE 20 IU/L (10-60); AST ASPARTATE AMINOTRANSFERASE 25 IU/L (10-42); BUN - BLOOD UREA NITROGEN 15 mg/dL (6-20); CALCIUM 9.4 mg/dL (8.5-10.3); CARBON DIOXIDE - CO2 26 mmol/L (21-32); CHLORIDE 105 mmol/L (101-111); CHOL/HDL RATIO 5.5 (<5.0); CHOLESTEROL 143 mg/dL; CREATININE 1.1 mg/dL (0.6-1.2); GFR - MDRD 72 (>89); GLUCOSE 130 mg/dL (70-100); HDL CHOLESTEROL 26 mg/dL; LDL CHOLESTEROL,CALCULATED 64 mg/dL; LDL/HDL RATIO 2.5 (<3.6); POTASSIUM 3.9 mmol/L (3.5-5.0); SODIUM 138 mmol/L (135-145); TOTAL PROTEIN 7.5 g/dL (6.7-8.2); TRIGLYCERIDES 263 mg/dL; VLDL CHOLESTEROL 53 mg/dL
[2022-10-09 20:12] LABS: ESTIMATED AVERAGE GLUCOSE 197 mg/dL (70-100); HEMOGLOBIN A1c% 8.5 % (4.27-6.07)
== END 2022-10-09 15:13 | disposition home or self-care (01) ==
LOC: LAB.N 15:12
PROVIDERS: ATTEND Physician Assistant
DX: E11.42 Type 2 diabetes mellitus with diabetic polyneuropathy (principal); E78.1 Pure hyperglyceridemia
CPT/HCPCS: 36415; 80053; 80061; 83036; 83721

== ENCOUNTER 2023-05-20 08:13 | Outpatient (CLI) | payer OTHER ==
[2023-05-20 12:25] LABS: BUN - BLOOD UREA NITROGEN 17 mg/dL (6-20); CALCIUM 9.9 mg/dL (8.5-10.3); CARBON DIOXIDE - CO2 26 mmol/L (21-32); CHLORIDE 105 mmol/L (101-111); CHOL/HDL RATIO 5.7 (<5.0); CHOLESTEROL 159 mg/dL; GFR - MDRD 80 (>89); GLUCOSE 236 mg/dL (74-104); HDL CHOLESTEROL 28 mg/dL; SODIUM 137 mmol/L (135-145); TRIGLYCERIDES 657 mg/dL (48-352)
[2023-05-20 12:48] LABS: ESTIMATED AVERAGE GLUCOSE 243 mg/dL (70-100); HEMOGLOBIN A1c% 10.1 % (4.27-6.07)
[2023-05-20 14:04] LABS: LDL CHOLESTEROL,DIRECT 53 mg/dL (75-193); LDLD/HDL RATIO 1.9 (<3.6)
== END 2023-05-20 08:14 | disposition home or self-care (01) ==
LOC: LAB.N 08:13
PROVIDERS: ATTEND Physician Assistant
DX: E11.42 Type 2 diabetes mellitus with diabetic polyneuropathy (principal); E78.2 Mixed hyperlipidemia
CPT/HCPCS: 36415; 80048; 80061; 83036; 83721